=== PATIENT | female | born 1940 | race Two or more races ===

== ENCOUNTER 2018-01-14 09:30 | Outpatient (CLI) | payer OTHER ==
[~2018-01-14 09:30] MED LIST: GLUCOTROL10 MG; HUMALOG MIX 75/23 ML; HYZAAR 100/25 T1 TAB; LANTUS100 U/ML; PROTONIX20 MG; SYNTHROID88 MCG
== END 2018-01-14 09:40 | disposition home or self-care (01) ==
LOC: SONOGRAMA 09:30
DX: E04.1 Nontoxic single thyroid nodule (principal)

== ENCOUNTER 2020-04-12 10:13 | Emergency (ER) | payer OTHER ==
[~2020-04-12] VITALS: Ht 162.6 cm; Wt 90.7 kg
[2020-04-12] MEDS ORDERED: NORVASC5 MG (10:34)
[2020-04-12] MEDS ORDERED: TOPROL XL100 M1 (10:35)
[2020-04-12] MEDS ORDERED: COMBIGAN EYE DRO5 ML (10:35)
[2020-04-12] MEDS ORDERED: REMERON15 M1 (10:36)
[2020-04-12] MEDS ORDERED: HYDROCHLOROTHIA25 MG (10:36)
[2020-04-12] MEDS ORDERED: GRALISE600 MG (10:37)
[2020-04-12] MEDS ORDERED: TRANXENE T-TAB7.5 MG (10:38)
[2020-04-12] MEDS ORDERED: ORPHENADRINE C100 MG PO (10:53)
[2020-04-12] MEDS ORDERED: DICLOFENAC POTA50 MG PO (10:53)
== END 2020-04-12 11:39 | disposition home or self-care (01) ==
LOC: ER 10:13
DX: S83.8X1A Sprain of other specified parts of right knee, initial encounter (principal); W18.39XA Other fall on same level, initial encounter; Y93.01 Activity, walking, marching and hiking; Y92.238 Other place in hospital as the place of occurrence of the external cause; Y99.8 Other external cause status

== ENCOUNTER 2020-04-12 11:25 | Outpatient (CLI) | payer OTHER ==
[~2020-04-12 11:25] MED LIST changes: +COMBIGAN EYE DRO5 ML; +DICLOFENAC POTA50 MG PO; +GRALISE600 MG; +HYDROCHLOROTHIA25 MG; +NORVASC5 MG; +ORPHENADRINE C100 MG PO; +REMERON15 M1; +TOPROL XL100 M1; +TRANXENE T-TAB7.5 MG
== END 2020-04-12 14:20 | disposition home or self-care (01) ==
LOC: SONOGRAMA 11:25
PROVIDERS: ATTEND Pathology Anatomic Pathology & Clinical Pathology
DX: E04.2 Nontoxic multinodular goiter (principal)

== ENCOUNTER 2021-10-07 08:53 | Outpatient (CLI) | payer OTHER | END 2021-10-07 08:57 | disposition home or self-care (01) | LOC: SONOGRAMA 08:53 | PROVIDERS: ATTEND Pathology Anatomic Pathology & Clinical Pathology | DX: D34 Benign neoplasm of thyroid gland (principal); E04.1 Nontoxic single thyroid nodule ==